=== PATIENT | female | born 1950 | race Caucasian/White ===

== ENCOUNTER 2019-05-11 05:25 | Observation (INO) | payer MEDICARE, BC ==
[2019-05-11] MEDS ORDERED: SODIUM CHLORIDE 0.9% 1,000 ML IV STA (05:34)
--- NOTE | 2019-05-11 05:34 | ED ---
General Adult HPI - General Stated complaint: DM Time Seen by Provider: 05/11/19 05:32 - History of Present Illness Initial comments: Samira is a morbidly obese 68-year-old female with history of insulin-dependent diabetes who presents to the emergency department today for evaluation of unresponsive episode in which she was found have a glucose of only 50. EMS was contacted this morning because the patient's was unable to wake her, he used her glucometer which read 160 and became concerned that she was unresponsive despite having a normal blood sugar, EMS arrived on scene, the patient had snoring respirations and was difficult to arouse, her eerag-wi-qwsq glucose was 50. IV access was obtained and patient was given half an amp of D 50 with improvement in her mental status she was then given oral glucose during transport to the hospital. Patient has an insulin pump in place and believes a muscle malfunction. Patient reports she was feeling fine yesterday but didn't have much of an appetite and did not eat much. She believes this may have contributed to her hypoglycemia. Of note the patient is also bradycardic and states she's been told that she has a slow heartbeat in the past, she states she has a history of A. fib. - Related Data Allergies Allergy/AdvReac Type Severity Reaction Status Date / Time codeine AdvReac Confusion Verified 05/11/19 05:39 Review of Systems ROS Statement: Those systems with pertinent positive or pertinent negative responses have been documented in the HPI. ROS Other: All systems not noted in ROS Statement are negative. General Exam - General Exam Comments Initial Comments: Physical Exam GENERAL: Morbidly obese 68-year-old female HENT: Normocephalic, Atraumatic. EYES: PERRL, EOMI PULMONARY: Unlabored respirations Likely suffers from obesity hypoventilation syndrome CARDIOVASCULAR: Bradycardic, regular 2+ pitting edema bilateral lower extremity is ABDOMEN: Soft and nontender with normal bowel sounds. SKIN: Skin is dry with chronic changes bilateral lower extremities : Normal external genitalia NEUROLOGIC: Patient is alert and oriented x3. Moving all extremities spontaneously MUSCULOSKELETAL: Normal extremities with adequate strength and full range of motion. No lower extremity swelling or edema. No calf tenderness. PSYCHIATRIC: Normal psychiatric evaluation. Course Vital Signs 05/11/19 05/11/19 05:28 06:47 Temperature 98.3 F Pulse Rate 43 L 48 L Respiratory 18 20 Rate Blood Pressure 172/81 125/67 O2 Sat by Pulse 95 95 Oximetry EKG Findings - EKG Comments: EKG Findings:: EKG was obtained due to bradycardia, EKG was obtained at 5:20 AM, rate is 44 rhythm is sinus bradycardia with a left bundle-branch block. Normal axis, normal intervals, OR 188, QRS 178, QTC prolonged at 435. She acute ST elevations or depressions or evidence of acute ischemia or infarction. Medical Decision Making - Medical Decision Making The patient was seen and evaluated upon arrival to the emergency department, patient was evaluated by EMS and found to be hypoglycemic, hyperglycemia was reversed in route to the hospital and upon arrival the patient is asymptomatic however she is noted to be bradycardic and chronically ill-appearing Labs were ordered and CBC CMP and urinalysis are relatively unremarkable TSH is elevated, free T4 is pending The patient has been awake alert and oriented, she was noted to fall sleep and have some loud snoring respirations but wakes to voice, when asked if she is ever had an evaluation for obstructive sleep apnea patient denies, she does not use a CPAP machine Patient remained bradycardic throughout her stay in the emergency department though she is asymptomatic. Given her advanced age multiple mode medical comorbidities, I do feel she warrants further evaluation. Patient is agreeable to plan for admission here for further evaluation Patients PCP with no preferences here, patient [facility] - Lab Data Result diagrams: 05/11/19 03:48 05/11/19 03:48 Lab Results 05/11/19 05/11/19 05/11/19 Range/Units 03:48 03:48 05:29 WBC 9.7 (3.8-10.6) k/uL RBC 4.86 (3.80-5.40) m/uL Hgb 14.0 (11.4-16.0) gm/dL Hct 42.2 (34.0-46.0) % MCV 86.7 (80.0-100.0) fL MCH 28.8 (25.0-35.0) pg MCHC 33.2 (31.0-37.0) g/dL RDW 15.5 (11.5-15.5) % Plt Count 272 (150-450) k/uL Neutrophils % 80 % Lymphocytes % 11 % Monocytes % 5 % Eosinophils % 2 % Basophils % 1 % Neutrophils # 7.7 (1.3-7.7) k/uL Lymphocytes # 1.1 (1.0-4.8) k/uL Monocytes # 0.5 (0-1.0) k/uL Eosinophils # 0.2 (0-0.7) k/uL Basophils # 0.1 (0-0.2) k/uL Sodium 140 (137-145) mmol/L Potassium 4.8 (3.5-5.1) mmol/L Chloride 102 (98-107) mmol/L Carbon Dioxide 30 (22-30) mmol/L Anion Gap 8 mmol/L BUN 18 H (7-17) mg/dL Creatinine 0.83 (0.52-1.04) mg/dL Est GFR (CKD-EPI)AfAm 83 (>60 ml/min/1.73 sqM) Est GFR (CKD-EPI)NonAf 72 (>60 ml/min/1.73 sqM) Glucose 220 H (74-99) mg/dL POC Glucose (mg/dL) 197 H (75-99) mg/dL POC Glu Operations Business Partner ID Erin Méndez Calcium 9.1 (8.4-10.2) mg/dL Total Bilirubin 0.6 (0.2-1.3) mg/dL AST 25 (14-36) U/L ALT 24 (9-52) U/L Alkaline Phosphatase 93 (38-126) U/L Total Protein 7.6 (6.3-8.2) g/dL Albumin 4.0 (3.5-5.0) g/dL TSH 5.030 H (0.465-4.680) mIU/L Urine Color Urine Appearance (Clear) Urine pH (5.0-8.0) Ur Specific [place] (1.001-1.035) Urine Protein (Negative) Urine Glucose (UA) (Negative) Urine Ketones (Negative) Urine Blood (Negative) Urine Nitrite (Negative) Urine Bilirubin (Negative) Urine Urobilinogen (<2.0) mg/dL Ur Leukocyte Esterase (Negative) Urine RBC (0-5) /hpf Urine WBC (0-5) /hpf Urine Bacteria (None) /hpf 05/11/19 05/11/19 Range/Units 06:17 06:44 WBC (3.8-10.6) k/uL RBC (3.80-5.40) m/uL Hgb (11.4-16.0) gm/dL Hct (34.0-46.0) % MCV (80.0-100.0) fL MCH (25.0-35.0) pg MCHC (31.0-37.0) g/dL RDW (11.5-15.5) % Plt Count (150-450) k/uL Neutrophils % % Lymphocytes % % Monocytes % % Eosinophils % % Basophils % % Neutrophils # (1.3-7.7) k/uL Lymphocytes # (1.0-4.8) k/uL Monocytes # (0-1.0) k/uL Eosinophils # (0-0.7) k/uL Basophils # (0-0.2) k/uL Sodium (137-145) mmol/L Potassium (3.5-5.1) mmol/L Chloride (98-107) mmol/L Carbon Dioxide (22-30) mmol/L Anion Gap mmol/L BUN (7-17) mg/dL Creatinine (0.52-1.04) mg/dL Est GFR (CKD-EPI)AfAm (>60 ml/min/1.73 sqM) Est GFR (CKD-EPI)NonAf (>60 ml/min/1.73 sqM) Glucose (74-99) mg/dL POC Glucose (mg/dL) 180 H (75-99) mg/dL POC Glu Operations Business Partner ID Ramona Falk Calcium (8.4-10.2) mg/dL Total Bilirubin (0.2-1.3) mg/dL AST (14-36) U/L ALT (9-52) U/L Alkaline Phosphatase (38-126) U/L Total Protein (6.3-8.2) g/dL Albumin (3.5-5.0) g/dL TSH (0.465-4.680) mIU/L Urine Color Yellow Urine Appearance Cloudy H (Clear) Urine pH 5.5 (5.0-8.0) Ur Specific [place] 1.017 (1.001-1.035) Urine Protein Trace H (Negative) Urine Glucose (UA) 4+ H (Negative) Urine Ketones Negative (Negative) Urine Blood Negative (Negative) Urine Nitrite Negative (Negative) Urine Bilirubin Negative (Negative) Urine Urobilinogen <2.0 (<2.0) mg/dL Ur Leukocyte Esterase Negative (Negative) Urine RBC <1 (0-5) /hpf Urine WBC <1 (0-5) /hpf Urine Bacteria Few H (None) /hpf Disposition Clinical Impression: Bradycardia, Hypothyroid, Morbid obesity, Hypoglycemia, IDDM (insulin dependent diabetes mellitus) Disposition: ADMITTED IP TO THIS HOSP Condition: Stable Is patient prescribed a controlled substance at d/c from ED?: No Referrals: Nonstaff,Physician [REFERRING] - 1-2 days
[2019-05-11 05:40] LABS: Glucose,Whole Blood 197 mg/dL (75-99)
[2019-05-11 05:57] LABS: Basophils # (A) 0.1 k/uL (0-0.2); Basophils % (A) 1 %; Eosinophils # (A) 0.2 k/uL (0-0.7); Eosinophils % (A) 2 %; HCT 42.2 % (34.0-46.0); Lymphocytes # (A) 1.1 k/uL (1.0-4.8); Lymphocytes % (A) 11 %; MCH 28.8 pg (25.0-35.0); MCHC 33.2 g/dL (31.0-37.0); MCV 86.7 fL (80.0-100.0); Mean Platelet Volume 7.4; Monocytes # (A) 0.5 k/uL (0-1.0); Monocytes % (A) 5 %; Neutrophils # (A) 7.7 k/uL (1.3-7.7); Neutrophils % (A) 80 %; Platelet Count 272 k/uL (150-450); RBC 4.86 m/uL (3.80-5.40); RDW 15.5 % (11.5-15.5); WBC 9.7 k/uL (3.8-10.6)
[2019-05-11 06:14] LABS: Calcium 9.1 mg/dL (8.4-10.2); Potassium 4.8 mmol/L (3.5-5.1); Total Bilirubin 0.6 mg/dL (0.2-1.3); Total Protein 7.6 g/dL (6.3-8.2)
[2019-05-11 06:25] LABS: Appearance,Urine Cloudy (Clear); Bacteria,Urine Few /hpf; Bilirubin,Urine Negative (Negative); Blood,Urine Negative (Negative); Color,Urine Yellow; Glucose,Urine (UA) 4+ (Negative); Ketones,Urine Negative (Negative); Leukocyte Esterase,Urine Negative (Negative); Nitrite,Urine Negative (Negative); PH, Urine 5.5 (5.0-8.0); Protein,Urine Trace (Negative); RBC,Urine <1 /hpf (0-5); Specific Gravity,Urine 1.017 (1.001-1.035); Urobilinogen,Urine <2.0 mg/dL (<2.0)
[2019-05-11 06:46] LABS: Glucose,Whole Blood 180 mg/dL (75-99)
[2019-05-11] MEDS ORDERED: NALOXONE 0.4 MG/ML 1 ML VIAL IV PRN (07:26)
[2019-05-11 07:53] VITALS: RESP 18
--- NOTE | 2019-05-11 08:13 | CT ---
EXAMINATION TYPE: CT brain wo con DATE OF EXAM: 05/11/2019 COMPARISON: NONE HISTORY: altered mental status CT DLP: 1099.4 mGycm Automated exposure control for dose reduction was used. FINDINGS: Central structures are midline. There is no evidence of hydrocephalus. No acute focal lesion, mass ef fect or midline shift is seen. I do not see evidence of intracranial blood. Visualized portions of the paranasal sinuses and mastoids are clear. The bony calvarium is intact. IMPRESSION: NO ACUTE INTRACRANIAL ABNORMALITY.
--- NOTE | 2019-05-11 09:51 | P.HPIM ---
History of Present Illness H&P Date: 05/11/19 Chief Complaint: Confusion altered mental status The patient is a morbidly obese 68-year-old female with history of Jtclrsm-Imvwn-Sfyzd, essential hypertension, insulin-dependent diabetes with peripheral neuropathy, paroxysmal A. fib on DOAC Xarelto who presents to the emergency department today for evaluation of unresponsive episode in which she was found have a glucose of only 50. EMS was contacted this morning because the patient's was unable to wake her, he used her glucometer which read 160 and became concerned that she was unresponsive despite having a normal blood sugar, EMS arrived on scene, the patient had snoring respirations and was diff icult to arouse, her uzvxl-la-bckw glucose was 50. IV access was obtained and patient was given half an amp of D 50 with improvement in her mental status she was then given oral glucose during transport to the hospital. Patient has an insulin pump in place and believes in a likely glucometer malfunction. Patient reports she was feeling fine yesterday but didn't have much of an appetite and did not eat much. She believes this may have contributed to her hypoglycemia. The patient is largely wheelchair bound she is able to ambulate very short distance with full assist. Reports significant snoring at night In the ER she had a comprehensive workup she was noted to be bradycardic with a rate of 44 EKG suggesting left bundle branch block, had a CBC was normal BMP was normal, TSH was elevated at 5.03 free T4 within normal range at 1. The patient is recommended for admission for bradycardia Review of Systems Pertinent positives per HPI all other review of systems are otherwise negative Past Medical History Past Medical History: Atrial Fibrillation, Diabetes Mellitus, Hyperlipidemia Additional Past Medical History / Comment(s): neuropathy History of Any Multi-Drug Resistant Organisms: None Reported Past Surgical History: Orthopedic Surgery Past Psychological History: No Psychological Hx Reported Smoking Status: Never smoker Past Alcohol Use History: None Reported Past Drug Use History: None Reported Medications and Allergies Home Medications Medication Instructions Recorded Confirmed Type DULoxetine HCL [Cymbalta] 30 mg PO DAILY 05/11/19 05/11/19 History Furosemide [Lasix] 20 mg PO DAILY 05/11/19 05/11/19 History Insuln Asp Prt/Insulin Aspart 0.01 unit SQ-PUMP CONTINUOUS 05/11/19 05/11/19 History [NovoLOG MIX 70-30 VIAL] Losartan Potassium 100 mg PO DAILY 05/11/19 05/11/19 History Potassium Chloride ER [K-Dur 10] 10 meq PO DAILY 05/11/19 05/11/19 History Pravastatin Sodium [Pravachol] 10 mg PO DAILY 05/11/19 05/11/19 History Rivaroxaban [Xarelto] 20 mg PO W/SUPPER 05/11/19 05/11/19 History Sotalol HCl [Sotalol AF] 80 mg PO Q12H 05/11/19 05/11/19 History Allergies Allergy/AdvReac Type Severity Reaction Status Date / Time codeine AdvReac Confusion Verified 05/11/19 07:44 Physical Exam Vitals: Vital Signs Temp Pulse Resp BP Pulse Ox 05/11/19 06:47 48 L 20 125/67 95 05/11/19 05:28 98.3 F 43 L 18 172/81 95 Intake and Output 05/10/19 05/11/19 05/11/19 22:59 06:59 14:59 Other: Weight 112.491 kg Constitutional: No acute distress, conversant, pleasant Eyes: Anicteric sclerae, moist conjunctiva, no lid-lag, PERRLA ENMT: NC/AT,Oropharynx clear, no erythema, exudates Neck:Supple, FROM, no masses, or JVD, No carotid bruits; No thyromegaly Lungs: Clear to auscultation, Clear to percussion, Normal respiratory effort, no accessory muscle use Cardiovascular: Bradycardic regular rhythm, No murmurs, gallops, or rubs no peripheral edema Abdominal: Soft Nontender, nom distended, no guarding, no rebound or rigidity, Normoactive bowel sounds No hepatomegaly, No splenomegaly, No palpable mass No abdominal wall hernia noted Skin: Normal temperature, tone, texture, turgor, No induration No subcutaneous nodules, No rash, lesions, No ulcers Extremities:No digital cyanosis No clubbing, Pedal pulses intact and symmetrical Radial pulses intact and symmetrical Psychiatric: Alert and oriented to person, place and time, Appropriate affect Intact judgement Neuro: Cranial nerves II-XII grossly intact. No focal sensory deficits Results CBC & Chem 7: 05/11/19 03:48 05/11/19 03:48 Labs: Abnormal Lab Results - Last 24 Hours (Table) 05/11/19 05/11/19 05/11/19 Range/Units 03:48 05:29 06:17 BUN 18 H (7-17) mg/dL Glucose 220 H (74-99) mg/dL POC Glucose (mg/dL) 197 H (75-99) mg/dL TSH 5.030 H (0.465-4.680) mIU/L Urine Appearance Cloudy H (Clear) Urine Protein Trace H (Negative) Urine Glucose (UA) 4+ H (Negative) Urine Bacteria Few H (None) /hpf 05/11/19 Range/Units 06:44 BUN (7-17) mg/dL Glucose (74-99) mg/dL POC Glucose (mg/dL) 180 H (75-99) mg/dL TSH (0.465-4.680) mIU/L Urine Appearance (Clear) Urine Protein (Negative) Urine Glucose (UA) (Negative) Urine Bacteria (None) /hpf Assessment and Plan (1) Metabolic encephalopathy Current Visit: Yes Status: Acute Code(s): G93.41 - METABOLIC ENCEPHALOPATHY SNOMED Code(s): 17317515 (2) Hypoglycemia Current Visit: Yes Status: Acute Code(s): E16.2 - HYPOGLYCEMIA, UNSPECIFIED SNOMED Code(s): 705987615 (3) Bradycardia Current Visit: Yes Status: Acute Code(s): R00.1 - BRADYCARDIA, UNSPECIFIED SNOMED Code(s): 58565079 (4) History of atrial fibrillation Current Visit: Yes Status: Acute Code(s): Z86.79 - PERSONAL HISTORY OF OTHER DISEASES OF THE CIRCULATORY SYSTEM SNOMED Code(s): 806154531 (5) IDDM (insulin dependent diabetes mellitus) Current Visit: Yes Status: Acute Code(s): E11.9 - TYPE 2 DIABETES MELLITUS WITHOUT COMPLICATIONS; Z79.4 - MCFP (CURRENT) USE OF INSULIN SNOMED Code(s): 39672020 (6) Bkgforu-Afxpa-Mfkps disease Current Visit: Yes Status: Acute Code(s): G60.0 - HEREDITARY MOTOR AND SENSORY NEUROPATHY SNOMED Code(s): 686499931 Plan: The patient is placed in observation anticipate a less than 2 midnight stay with acute metabolic encephalopathy and bradycardia after presenting here via EMS with confusion unresponsiveness altered mental status found to be secondary to hypoglycemia with initial blood sugar reading at 50 secondary to poor oral intake while currently on insulin pump. The patient was given an amp of D50 and blood sugars have been stable since, CT of the head will be ordered to rule out any acute intracranial pathology. patient is noted to have severe bradycardia with possible left bundle-branch block, will order echocardiogram and serial troponins and consult cardiology for further recommendations. Alexa christensen was previously on beta william will hold her Sotalol, patient has a known history of paroxysmal A. fib and is currently on Xarelto will be continued. We'll continue all of her other home medications and continue to follow her clinical course CODE STATUS: DNR/DNI Discussed plan of care with: Patient and Jaguar Anticipate discharge 1-[address]: Home Prophylaxis: Currently on DOAC
[2019-05-11] MEDS ORDERED: ACETAMINOPHEN TAB 325 MG TAB PO PRN (10:16)
[2019-05-11 11:38] LABS: Glucose,Whole Blood 190 mg/dL (75-99)
--- NOTE | 2019-05-11 14:17 | CONS ---
CONSULTATION CHIEF COMPLAINT: Bradycardia. Samira Jaime is a 68-year-old lady with history of diabetes, paroxysmal atrial fibrillation, dyslipidemia, who sees a service shop foreman in [place] and came to hospital having had what the describes as a hypoglycemic event. The patient has peripheral neuropathy and uses a motorized wheelchair to get around and when he woke up this morning, he found her between her wheelchair and the motorized wheelchair is somewhat confused. He checked a blood sugar that was normal, but then the EMS arrived and they checked the blood sugar, it was 50. Brought into hospital and gradually her symptoms have gotten better. The EKG shows sinus bradycardia with left bundle branch block. I do not have any old EKGs to compare with. She had a CT scan of the brain that is negative. Hemoglobin is normal at 14. Potassium is 4.8, creatinine is 0.8. TSH is elevated at 5 with a free T4 that is within normal limits. I am going to obtain an old EKG on her. The patient's states that she has always had a slow heart rate. I will obtain a 2D echo to evaluate her LV function and I will watch her on telemetry. PAST MEDICAL HISTORY: Significant for paroxysmal atrial fibrillation, dyslipidemia and hypertension. MEDICATIONS: Medications at home included sotalol 80 b.i.d., Xarelto 20 daily, pravastatin 10 daily, K-Dur 10 daily, losartan 100 daily, insulin Lasix and Cymbalta. ALLERGIES: The patient is allergic to CODEINE. FAMILY HISTORY: Negative for premature coronary artery disease. SOCIAL HISTORY: Negative for current smoking, EtOH abuse, or drug abuse. REVIEW OF SYSTEMS: HEENT is unremarkable. CARDIAC as described above. RESPIRATORY: Negative. GI: Negative. GENITOURINARY: Negative. ALLERGY/IMMUNOLOGY: Negative. SKIN: Negative. MUSCULOSKELETAL: Arthritis. PSYCHOSOCIAL: Negative. ENDOCRINE: Negative. DERMATOLOGICAL: Negative. ONCOLOGICAL: Negative. Rest of the system review is not relevant. EXAM: The patient is comfortable at rest. Afebrile. Heart rate is 48 beats per minute. Blood pressure varies between 198/94 to 125/69. There is no jugular venous distention. Carotid upstroke is normal. There is no bruit. Chest exam reveals good air entry bilaterally. Heart exam reveals first and second heart sounds. No gallop. No murmur. Abdomen is soft, nontender. Exam of extremities did not reveal any edema. Peripheral pulses are felt. LAB: Showed that the hemoglobin is 14, creatinine is normal. TSH is elevated but the free T4 is normal. I will obtain a free T3 also. ASSESSMENT: 1. Asymptomatic sinus bradycardia. 2. Insulin-requiring diabetes. 3. Paroxysmal atrial fibrillation. 4. Hypertension. PLAN: I will obtain an old EKG, check an echocardiogram, check free T3 and add amlodipine for better blood pressure control. MMODL / IJN: [id number] /
[2019-05-11] MEDS: LOSARTAN 50 MG TAB PO SCH (16:30)
[2019-05-11] MEDS: FUROSEMIDE 20 MG TAB PO SCH (16:30)
[2019-05-11] MEDS: POTASSIUM CHLORIDE ER 10 MEQ TAB.ER.PRT PO SCH (16:31)
[2019-05-11] MEDS: DULoxetine HCL 30 MG CAPSULE.DR PO SCH (16:31)
[2019-05-11 16:37] LABS: Glucose,Whole Blood 297 mg/dL (75-99)
[2019-05-11] MEDS: INSULIN ASPART (NovoLOG) 100 UNIT/ML VIAL SQ SCH ×2 (17:26→20:23)
[2019-05-11] MEDS ORDERED: RIVAROXABAN 20 MG TAB PO SCH (17:30)
[2019-05-11 20:16] LABS: Glucose,Whole Blood 279 mg/dL (75-99)
[2019-05-11] MEDS: PRAVASTATIN SODIUM 20 MG TAB PO SCH (20:53)
[2019-05-12 00:06] LABS: Cholesterol 183 mg/dL (<200); HDL Cholesterol 47 mg/dL (40-60); LDL Cholesterol,Calculated 110 mg/dL (0-99); Triglycerides 132 mg/dL (<150)
[2019-05-12 07:02] LABS: Glucose,Whole Blood 242 mg/dL (75-99)
[2019-05-12] MEDS: LOSARTAN 50 MG TAB PO SCH (08:25)
[2019-05-12] MEDS: POTASSIUM CHLORIDE ER 10 MEQ TAB.ER.PRT PO SCH (08:25)
[2019-05-12] MEDS: INSULIN ASPART (NovoLOG) 100 UNIT/ML VIAL SQ SCH ×2 (08:25→12:19)
[2019-05-12] MEDS: PRAVASTATIN SODIUM 20 MG TAB PO SCH (08:26)
[2019-05-12] MEDS: FUROSEMIDE 20 MG TAB PO SCH (08:26)
[2019-05-12] MEDS: DULoxetine HCL 30 MG CAPSULE.DR PO SCH (08:26)
[2019-05-12] MEDS ORDERED: POTASSIUM CHLORIDE ER 10 MEQ TAB.ER.PRT PO SCH (09:00)
[2019-05-12] MEDS ORDERED: PRAVASTATIN SODIUM 20 MG TAB PO SCH (09:00)
[2019-05-12] MEDS ORDERED: FUROSEMIDE 20 MG TAB PO SCH (09:00)
[2019-05-12] MEDS ORDERED: LOSARTAN 50 MG TAB PO SCH (09:00)
[2019-05-12] MEDS ORDERED: DULoxetine HCL 30 MG CAPSULE.DR PO SCH (09:00)
[2019-05-12 11:57] LABS: Glucose,Whole Blood 264 mg/dL (75-99)
--- NOTE | 2019-05-12 12:46 | ECHOF ---
Referral Reason:bradycardia MEASUREMENTS -------- HEIGHT: 154.9 cm WEIGHT: 112.5 kg BP: 169/62 IVSd: 1.5 cm (0.6 - 1.1) LVIDd: 4.9 cm (3.9 - 5.3) LVPWd: 1.4 cm (0.6 - 1.1) IVSs: 1.9 cm LVIDs: 2.7 cm LVPWs: 1.7 cm LAESV Index (A-L): 29.57 ml/m Ao Diam: 2.9 cm (2.0 - 3.7) AV Cusp: 1.6 cm (1.5 - 2.6) MV E Nabil: 1.05 m/s MV DecT: 315 ms MV A Nabil: 1.43 m/s MV E/A Ratio: 0.73 RAP: 5.00 mmHg RVSP: 37.23 mmHg FINDINGS -------- Sinus rhythm. This was a technically adequate study. The left ventricular size is normal. There is moderate concentric left ventricular hypertrophy. O verall left ventricular systolic function is normal with, an EF between 55 - 60 %. Mitral Doppler i nflow pattern suggests diastolic filling abnormality. The RV was not well visualized. Left atrium is mildly dilated by volume. The right atrium was not well visualized. Lumason used Interatrial and interventricular septum intact. The aortic valve is trileaflet, and appears structurally normal. No aortic stenosis or regurgitation. Mild mitral annular calcification present. Mild mitral regurgitation is present. Mild mitral sten osis , with a MVA of 2.5cm (by PHT) Mild tricuspid regurgitation present. There is mild pulmonary hypertension. The right ventricular systolic pressure, as measured by Doppler, is 37.23mmHg. Trace/mild (physiologic) pulmonic regurgitation. The aortic root size is normal. IVC not well visualized Echo free space may represent effusion or a pericardial fat pad. CONCLUSIONS -------- 1. Sinus rhythm. 2. This was a technically adequate study. 3. The left ventricular size is normal. 4. There is moderate concentric left ventricular hypertrophy. 5. Overall left ventricular systolic function is normal with, an EF between 55 - 60 %. 6. Mitral Doppler inflow pattern suggests diastolic filling abnormality. 7. The RV was not well visualized. 8. Left atrium is mildly dilated by volume. 9. Lumason used 10. The aortic valve is trileaflet, and appears structurally normal. No aortic stenosis or regurgitat ion. 11. Mild mitral annular calcification present. 12. Mild mitral regurgitation is present. 13. Mild mitral stenosis. 14. , with a MVA of 2.5cm (by PHT) 15. Mild tricuspid regurgitation present. 16. There is mild pulmonary hypertension. 17. Trace/mild (physiologic) pulmonic regurgitation. 18. The aortic root size is normal. 19. IVC not well visualized 20. Echo free space may represent effusion or a pericardial fat pad. BELL CLERK: Yakelin Sharma RDCS
--- NOTE | 2019-05-12 13:27 | P.PN ---
Subjective This is a pleasant 68-year-old female past medical history significant for paroxysmal atrial fibrillation on prison anti-coagulation, hypertension, diabetes mellitus and dyslipidemia. She follows with Dr. Haley for cardiology. There was an episode of bradycardia and her beta blockers were stopped. She is seen and examined sitting up in bed in no acute distress. She states overall she just feels tired. She has had no further syncope, dizziness or hypoglycemia. EKG requested from her primary eligibility consultant for review. Reveals left bundle branch block. Blood pressure 97/48 heart rate 68 afebrile and maintaining oxygen saturation on room air. Currently maintained on atorvastatin 40 mg daily, lasix 20 mg daily, losartan 100 mg daily, potassium 10 meq daily and xarelto 20 mg daily. Echocardiogram obtained reveals preserved LV systolic function with ejection fraction 55-60%, mild mitral regurgitation and mild mitral stenosis with a mitral valve area 2.5 cm. GENERAL: Well-appearing, well-nourished and in no acute distress. NECK: Supple without JVD or thyromegaly. LUNGS: Breath sounds clear to auscultation bilaterally. Respiration equal and unlabored. No wheezes, rales or rhonchi. HEART: Regular rate and rhythm with murmur at the left sternal border, no rubs or gallops. S1 and S2 heard. EXTREMITIES: Normal range of motion, no edema. No clubbing or cyanosis. Peripheral pulses intact. ASSESSMENT Asymptomatic sinus bradycardia Paroxysmal atrial fibrillation on prison anti-coagulation Diabetes mellitus Hypertension Dyslipidemia Left bundle branch block PLAN Stable from a cardiac perspective. Discontinue sotolol upon discharge. Resuming as needed can be discussed with her primary eligibility consultant in the outpatient setting. EKG reviewed from her primary eligibility consultant indicating chronic left bundle branch block. Follow-up with her primary eligibility consultant upon discharge. Nurse Practitioner note has been reviewed, I agree with a documented findings and plan of care. Patient was seen and examined. Objective - Vital Signs Vital signs: Vital Signs Temp 98.3 F 05/12/19 07:59 Pulse 68 05/12/19 07:59 Resp 18 05/12/19 07:59 BP 97/78 05/12/19 07:59 Pulse Ox 97 05/12/19 07:59 Intake & Output 05/11/19 05/12/19 05/12/19 18:59 06:59 18:59 Intake Total 480 Balance 480 Intake: Oral 480 Other: # Voids 2 2 - Labs CBC & Chem 7: 05/11/19 03:48 05/11/19 03:48 Labs: Abnormal Lab Results - Last 24 Hours (Table) 05/11/19 05/11/19 05/11/19 Range/Units 03:48 11:36 16:36 POC Glucose (mg/dL) 190 H 297 H (75-99) mg/dL LDL Cholesterol, Calc 110 H (0-99) mg/dL 05/11/19 05/12/19 Range/Units 20:08 07:00 POC Glucose (mg/dL) 279 H 242 H (75-99) mg/dL LDL Cholesterol, Calc (0-99) mg/dL
[2019-05-12] MEDS ORDERED: amLODIPine 5 MG TAB PO SCH (13:30)
--- NOTE | 2019-05-12 15:26 | P.DS ---
Providers Date of admission: 05/11/19 07:27 Expected date of discharge: 05/12/19 Attending physician: Ming Li MD Consults: 05/11/19 07:27 Consult Physician Routine Consulting Provider: [facility] Consult Reason/Comments: bradycardia Do you want consulting provider notified?: Yes, Notify in am Primary care physician: Sadie [facility] Course: The patient is a morbidly obese 68-year-old female with history of Xaahczb-Zmqpq-Gpmty, essential hypertension, insulin-dependent diabetes with peripheral neuropathy, paroxysmal A. fib on DOAC Xarelto who presents to the emergency department today for evaluation of unresponsive episode in which she was found have a glucose of only 50. Patient has an insulin pump in place and believes in a likely glucometer malfunction. Patient reports she was feeling fine yesterday but didn't have much of an appetite and did not eat much. She believes this may have contributed to her hypoglycemia. In the ER she had a comprehensive workup she was noted to be bradycardic with a rate of 44 EKG suggesting left bundle branch block, had a CBC was normal BMP was normal, TSH was elevated at 5.03 free T4 within normal range at 1. The patient is recommended for admission for bradycardia. Patient was given an amp of D50 and her blood glucose has been stable since. CT of the head showed no acute intracranial pathology. Patient's blood sugars ranged from 190-297 during her hospitalization. With regard to her bradycardia, plan was to rule out acute coronary syndrome. Patient was noted to be on sotalol which was discontinued. Troponin was less than 0.012, ruling out ACS. Echocardiogram showed EF 55-60% with moderate concentric LVH. Cardiology was consulted and recommended discontinuing the sotalol and cleared the patient for discharge with close follow-up with her primary char conveyor tender. Patient was seen and examined. No acute events overnight. Patient reports no more confusion. No chest pain, shortness of breath or palpitations. No dizziness. No changes in urination or bowel habits. Looking forward to going home. General: [non toxic], [no distress], [appears at stated age] Derm: [warm], [dry] Head: [atraumatic], [normocephalic], [symmetric] Eyes: [EOMI], [no lid lag], [anicteric sclera] Cardiovascular: [S1S2 reg], [no murmur] Lungs: [CTA bilateral], [no rhonchi, no rales] , [no accessory muscle use] Abdominal: [soft], [ nontender to palpation], [no guarding], [no appreciable organomegaly] Ext: [no gross muscle atrophy], [1+ lower extremity bilateral pitting edema], [no contractures] Neuro: [no focal neuro deficits] Psych: [Alert], [oriented], [appropriate affect] Assessment and Plan Acute metabolic encephalopathy, now resolved due to hypoglycemia Bradycardia likely due to beta william, now discontinued Atrial fibrillation Insulin-dependent diabetes mellitus Patient's mentation has improved since her blood glucose has gone up. She has not had any hypoglycemic episodes since admission. Recommendations from cardiology is to discontinue sotalol and resume all other medications. She is to follow-up with her primary char conveyor tender. Patient believes that her hypoglycemia was due to the malfunctioning over glucometer. Her glucometer showed a blood glucose in the 120s were as EMS glucometer showed a blood glucose around 50. She has since replace her glucometer. We will discharge patient home to continue her home medications except for sotalol. She is to follow-up with her PCP within 3 days. She is to follow-up with her char conveyor tender within 1 week of discharge. Patient verbalized understanding of the plan. Pertinent Studies: Brain CT, echocardiogram Patient Condition at Discharge: Stable Plan - Discharge Summary Discharge Rx Participant: No New Discharge Prescriptions: New amLODIPine [Norvasc] 5 mg PO DAILY #30 tab Continue Rivaroxaban [Xarelto] 20 mg PO W/SUPPER Pravastatin Sodium [Pravachol] 10 mg PO DAILY Potassium Chloride ER [K-Dur 10] 10 meq PO DAILY Losartan Potassium 100 mg PO DAILY Insuln Asp Prt/Insulin Aspart [NovoLOG MIX 70-30 VIAL] 0.01 unit SQ-PUMP CONTINUOUS Furosemide [Lasix] 20 mg PO DAILY DULoxetine HCL [Cymbalta] 30 mg PO DAILY Discontinued Sotalol HCl [Sotalol AF] 80 mg PO Q12H Discharge Medication List DULoxetine HCL [Cymbalta] 30 mg PO DAILY 05/11/19 [History] Furosemide [Lasix] 20 mg PO DAILY 05/11/19 [History] Insuln Asp Prt/Insulin Aspart [NovoLOG MIX 70-30 VIAL] 0.01 unit SQ-PUMP CONTINUOUS 05/11/19 [History] Losartan Potassium 100 mg PO DAILY 05/11/19 [History] Potassium Chloride ER [K-Dur 10] 10 meq PO DAILY 05/11/19 [History] Pravastatin Sodium [Pravachol] 10 mg PO DAILY 05/11/19 [History] Rivaroxaban [Xarelto] 20 mg PO W/SUPPER 05/11/19 [History] amLODIPine [Norvasc] 5 mg PO DAILY #30 tab 05/12/19 [Rx] Follow up Appointment(s)/Referral(s): Nonstaff,Physician [REFERRING] - 1-2 days Jorge Brand MD [STAFF PHYSICIAN] - 1 Week Activity/Diet/Wound Care/Special Instructions: Diet: Diabetic Follow-up PCP within 1-2 days of discharge. Follow-up with cardiology within 1 week of discharge. Take all medications as advised. Discharge Disposition: HOME SELF-CARE
[2019-05-12 16:08] VITALS: BP 181/81; PULSE 70; TEMP 98.3
[2019-05-12] MEDS ORDERED: RIVAROXABAN 20 MG TAB PO SCH (17:30)
[2019-05-12] MEDS ORDERED: ATORVASTATIN 40 MG TAB PO SCH (21:00)
== END 2019-05-12 16:50 | disposition home or self-care (01) ==
LOC: EC 05:25 → 1SOBS 07:27
PROVIDERS: ADMIT Family Medicine; ATTEND Family Medicine
DX: E11.649 Type 2 diabetes mellitus with hypoglycemia without coma (principal); G93.41 Metabolic encephalopathy; R00.1 Bradycardia, unspecified; E03.9 Hypothyroidism, unspecified; I48.0 Paroxysmal atrial fibrillation; E11.42 Type 2 diabetes mellitus with diabetic polyneuropathy; E66.2 Morbid (severe) obesity with alveolar hypoventilation; Z68.42 Body mass index [BMI] 45.0-49.9, adult; I10 Essential (primary) hypertension; G60.0 Hereditary motor and sensory neuropathy; E78.5 Hyperlipidemia, unspecified; I05.2 Rheumatic mitral stenosis with insufficiency; I44.7 Left bundle-branch block, unspecified; Z66 Do not resuscitate; Z79.01 Long term (current) use of anticoagulants; Z79.899 Other long term (current) drug therapy; Z96.41 Presence of insulin pump (external) (internal); Z88.5 Allergy status to narcotic agent
CPT/HCPCS: 96360; 99285; 36415; 93005; 97162; 84439; 84481; 80061; 80053; 84443; 84484; 85025; 81001; 70450; G0378 ×2; C8929; Q9950; 93306

== ENCOUNTER 2021-11-12 05:23 | Observation (INO) | payer MEDICARE, BC ==
[2021-11-12 05:45] LABS: Basophils % (A) 1 %; Eosinophils # (A) 0.2 k/uL (0-0.7); Eosinophils % (A) 4 %; HCT 40.8 % (34.0-46.0); HGB 13.4 gm/dL (11.4-16.0); Lymphocytes % (A) 19 %; MCH 28.7 pg (25.0-35.0); MCHC 32.9 g/dL (31.0-37.0); MCV 87.2 fL (80.0-100.0); Mean Platelet Volume 9.5; Monocytes # (A) 0.4 k/uL (0-1.0); Monocytes % (A) 7 %; Neutrophils # (A) 3.6 k/uL (1.3-7.7); Neutrophils % (A) 68 %; Platelet Count 168 k/uL (150-450); RBC 4.68 m/uL (3.80-5.40); RDW 14.4 % (11.5-15.5); WBC 5.4 k/uL (3.8-10.6)
--- NOTE | 2021-11-12 05:47 | ED ---
Chest Pain HPI - General Chief Complaint: Chest Pain Stated Complaint: Chest Pain Time Seen by Provider: 11/12/21 05:25 Source: patient, RN notes reviewed, old records reviewed Mode of arrival: EMS - History of Present Illness Initial Comments: This is a 70-year-old female with history of A. fib hypertension high cholesterol. Patient presents today for evaluation of chest pain anterior chest pain no significant shortness of breath no travel show sick contacts no other recent complaints. MD Complaint: chest pain -: hour(s) Onset: during rest, during exertion Pain Location: substernal, left chest Pain Radiation: none Severity: mild Quality: tightness, heaviness Consistency: constant, intermittent Improves With: nothing Worsens With: nothing Context: recent illness Anginal Symptoms: diaphoresis, dyspnea Other Symptoms: cough, palpitations Treatments Prior to Arrival: none - Related Data Home Medications Medication Instructions Recorded Confirmed DULoxetine HCL [Cymbalta] 30 mg PO DAILY PRN 05/11/19 11/12/21 Rivaroxaban [Xarelto] 20 mg PO W/SUPPER 05/11/19 11/12/21 Albuterol Nebulized [Ventolin 2.5 mg INHALATION RT-Q4H PRN 11/12/21 11/12/21 Nebulized] Azithromycin [Zithromax Z-pack (6 See Taper PO DAILY 11/12/21 11/12/21 tabs)] Brimonidine Tartrate [Alphagan P 1 drops BOTH EYES BID 11/12/21 11/12/21 0.2% Ophth Soln] Insulin Aspart (For Pump) [NovoLOG 0.01 unit SQ-PUMP CONTINUOUS 11/12/21 11/12/21 (For Pump)] Latanoprost [Xalatan 0.005%] 1 drop BOTH EYES HS 11/12/21 11/12/21 hydroCHLOROthiazide [Hydrodiuril] 25 mg PO DAILY 11/12/21 11/12/21 Allergies Allergy/AdvReac Type Severity Reaction Status Date / Time codeine AdvReac Confusion Verified 11/12/21 11:51 Review of Systems ROS Statement: Those systems with pertinent positive or pertinent negative responses have been documented in the HPI. ROS Other: All systems not noted in ROS Statement are negative. EKG Findings - EKG Comments: EKG Findings:: EKG shows sinus rhythm 76 [place] 173 QRS 92 QTC 484 Past Medical History Past Medical History: Atrial Fibrillation, Diabetes Mellitus, Hyperlipidemia Additional Past Medical History / Comment(s): neuropathy History of Any Multi-Drug Resistant Organisms: None Reported Past Surgical History: Orthopedic Surgery Additional Past Surgical History / Comment(s): "surjit in her leg after fracture" Past Psychological History: No Psychological Hx Reported Past Alcohol Use History: None Reported Past Drug Use History: None Reported General Exam General appearance: alert, in no apparent distress Head exam: Present: atraumatic, normocephalic, normal inspection Eye exam: Present: normal appearance, PERRL, EOMI. Absent: scleral icterus, conjunctival injection, periorbital swelling ENT exam: Present: normal exam, mucous membranes moist Neck exam: Present: normal inspection. Absent: tenderness, meningismus, lymphadenopathy Respiratory exam: Present: normal lung sounds bilaterally. Absent: respiratory distress, wheezes, rales, rhonchi, stridor Cardiovascular Exam: Present: regular rate, normal rhythm, normal heart sounds. Absent: systolic murmur, diastolic murmur, rubs, gallop, clicks GI/Abdominal exam: Present: soft, normal bowel sounds. Absent: distended, tenderness, guarding, rebound, rigid Extremities exam: Present: normal inspection, full ROM, normal capillary refill. Absent: tenderness, pedal edema, joint swelling, calf tenderness Back exam: Present: normal inspection Neurological exam: Present: alert, oriented X3, CN II-XII intact Psychiatric exam: Present: normal affect, normal mood Skin exam: Present: warm, dry, intact, normal color. Absent: rash Course Vital Signs 11/12/21 11/12/21 11/12/21 05:25 05:35 05:40 Temperature 97.6 F Pulse Rate 75 71 65 Respiratory 16 14 20 Rate Blood Pressure 185/83 185/83 186/95 O2 Sat by Pulse 95 95 96 Oximetry 11/12/21 11/12/21 11/12/21 06:10 06:20 06:30 Temperature Pulse Rate 75 81 73 Respiratory 16 20 15 Rate Blood Pressure 208/91 211/99 202/79 O2 Sat by Pulse 96 Oximetry 11/12/21 11/12/21 11/12/21 06:40 07:30 08:00 Temperature Pulse Rate 66 63 59 L Respiratory 22 Rate Blood Pressure 155/67 107/60 170/82 O2 Sat by Pulse 100 Oximetry 11/12/21 11/12/21 11/12/21 08:30 09:00 09:29 Temperature Pulse Rate 59 L 58 L 60 Respiratory Rate Blood Pressure 162/61 134/63 O2 Sat by Pulse Oximetry 11/12/21 11/12/21 11/12/21 09:30 09:39 10:00 Temperature Pulse Rate 60 60 60 Respiratory Rate Blood Pressure 147/69 144/77 O2 Sat by Pulse Oximetry 11/12/21 11/12/21 11/12/21 12:13 12:23 13:48 Temperature Pulse Rate 66 68 67 Respiratory 18 Rate Blood Pressure 168/79 O2 Sat by Pulse Oximetry - Reevaluation(s) Reevaluation #1: 11/12/21 Medical records are reviewed Reevaluation #2: 11/12/21 Patient informed results and questions answered Reevaluation #3: 11/12/21 Patient has persistent chest pain here in the emergency department - Consultations Consultation #1: Spoke with sound physicians agreeable to admit this patient Chest Pain MDM - MDM 70 female to the emergency department for evaluation of chest pain. Chest x-r ays negative here in the emergency room. A she'll be admitted for chest pain observation negative troponin negative EKG Disposition Clinical Impression: Chest pain Disposition: ADMITTED IP TO THIS HOSP Condition: Fair Is patient prescribed a controlled substance at d/c from ED?: No
[2021-11-12 05:59] LABS: INR 1.2 (<1.2); Partial Thromboplastin Time 29.8 sec (22.0-30.0); Prothrombin Time 12.3 sec (9.0-12.0)
[2021-11-12] MEDS ORDERED: NITROGLYCERIN SL TABS 0.4 MG TAB SUBLINGUAL PRN (06:09)
[2021-11-12 06:23] LABS: ALT 18 U/L (4-34); African American GFR (CKD) >90 (>60 ml/min/1.73 sqM); Anion Gap 2 mmol/L; Blood Urea Nitrogen 19 mg/dL (7-17); Calcium 8.2 mg/dL (8.4-10.2); Carbon Dioxide 32 mmol/L (22-30); Chloride 103 mmol/L (98-107); Glucose 182 mg/dL (74-99); Lipase 167 U/L (23-300); Non-African American GFR(CKD) 89 (>60 ml/min/1.73 sqM); Sodium 137 mmol/L (137-145); Total Bilirubin 0.8 mg/dL (0.2-1.3)
[2021-11-12] MEDS ORDERED: ASPIRIN 81 MG PO STA (06:26)
[2021-11-12] MEDS ORDERED: MORPHINE SULFATE 4 MG/ML SYRINGE IV PRN (06:26)
--- NOTE | 2021-11-12 06:28 | XR ---
EXAMINATION TYPE: XR chest 2V DATE OF EXAM: 11/12/2021 COMPARISON: NONE HISTORY: Chest pain. TECHNIQUE: Frontal and lateral views of the chest are obtained. FINDINGS: Suboptimal due to large body habitus. Overlying bra strap and EKG leads are present. Areas of faint increased opacity bilaterally difficult to exclude. No pleural effusion or pneumothorax seen bilaterally. The cardiac silhouette size is enlarged. The osseous structures are intact. IMPRESSION: Suboptimal study. Cardiomegaly with possible bilateral areas of early edema and/or infil trate. Correlate clinically.
[2021-11-12] MEDS ORDERED: LABETALOL 5 MG/ML VIAL MDV IVP STA (06:30)
[2021-11-12 06:51] LABS: AST 42 U/L (14-36); Albumin 3.9 g/dL (3.5-5.0); Magnesium 1.8 mg/dL (1.6-2.3); Potassium 4.3 mmol/L (3.5-5.1); Total Protein 7.8 g/dL (6.3-8.2)
[2021-11-12 06:52] LABS: Alkaline Phosphatase 58 U/L (38-126)
[2021-11-12] MEDS: IPRATROPIUM-ALBUTEROL 3 ML NEB INHALATION SCH ×5 (09:28→23:24)
[2021-11-12] MEDS ORDERED: IPRATROPIUM-ALBUTEROL 3 ML NEB INHALATION SCH (12:00)
[2021-11-12] MEDS ORDERED: DULoxetine HCL 30 MG CAPSULE.DR PO PRN (12:06)
[2021-11-12] MEDS ORDERED: ALBUTEROL NEBULIZED 2.5 MG/3 ML INHALATION PRN (12:06)
[2021-11-12] MEDS: hydroCHLOROthiazide 25 MG TAB PO SCH (13:47)
--- NOTE | 2021-11-12 13:56 | P.HPIM ---
History of Present Illness H&P Date: 11/12/21 Chief Complaint: Chest pain 70-year-old woman with medical history of Olywour-Ewvas-Ysrht, hypertension, hyperlipidemia, diabetes, proximal atrial fibrillation presented with chest pressure and dyspnea. Patient says that she started having chest pressure last night at 11 PM, continue throughout the day. She also noticed increased dyspnea. The pressure was substernal in nature. She declines having had a history of heart attack or stroke. She has never had a heart workup before. She is not a smoker. She denies fevers, chills, nausea, vomiting, palpitations, syncope, presyncope, abdominal pain, cough, consultation, diarrhea, dysuria, dyschezia, numbness/weakness of extremities. In the emergency room, patient was afebrile, 144/77, heart rate 60, 96% on 3 L nasal cannula. CBC is unremarkable. Chemistries are unremarkable. LFTs have mild elevation of AST to 42 mother was unremarkable. Initial troponin was negative, second troponin was negative; BNP was 91. INR is mildly elevated at 1.2. EKG demonstrates sinus rhythm with left bundle-branch block which is not new. Chest x-ray demonstrate cardiomegaly with possible bilateral areas of early edema and/or infiltrate. All Systems reviewed and pertinent positives and negatives noted in HPI, all other symptoms are negative Gen: awake, alert HEENT: normocephalic, atraumatic, good hearing acuity, moist mucous membranes Resp: good air exchange, breathing comfortably with no accessory muscle use, bilateral crackles CVS: good distal perfusion x 4, regular rate and rhythm without murmurs GI: soft, NTTP, ND : no SPT, no CVAT, chaparro catheter not present MSK: trace pitting edema, no clubbing Neuro: non-focal, moving all extremities Psych: cooperative, euthymic mood Labs and imaging reviewed as above Assessment/plan: Chest pain, atypical Acute hypoxemic respiratory failure Volume overload -Admit to observation with telemetry -Cardiology consulted -Trend troponins -Aspirin, statin, beta william -EKG/nitro when necessary -TSH, A1c, lipid panel -40 mg IV Lasix today -Echocardiogram pending History of Bwdmkwd-Ftnxc-Uxksr Hypertension Hyperlipidemia Diabetes type 2 Paroxysmal atrial fibrillation -Home Medications reviewed and reconciled Patient is a DO NOT RESUSCITATE/DO NOT INTUBATE DVT prophylaxis with enoxaparin Past Medical History Past Medical History: Atrial Fibrillation, Diabetes Mellitus, Hyperlipidemia Additional Past Medical History / Comment(s): neuropathy History of Any Multi-Drug Resistant Organisms: None Reported Past Surgical History: Orthopedic Surgery Additional Past Surgical History / Comment(s): "surjit in her leg after fracture" Past Psychological History: No Psychological Hx Reported Past Alcohol Use History: None Reported Past Drug Use History: None Reported Medications and Allergies Home Medications Medication Instructions Recorded Confirmed Type DULoxetine HCL [Cymbalta] 30 mg PO DAILY PRN 05/11/19 11/12/21 History Rivaroxaban [Xarelto] 20 mg PO W/SUPPER 05/11/19 11/12/21 History Albuterol Nebulized [Ventolin 2.5 mg INHALATION RT-Q4H PRN 11/12/21 11/12/21 History Nebulized] Azithromycin [Zithromax Z-pack (6 See Taper PO DAILY 11/12/21 11/12/21 History tabs)] Brimonidine Tartrate [Alphagan P 1 drops BOTH EYES BID 11/12/21 11/12/21 History 0.2% Ophth Soln] Insulin Aspart (For Pump) [NovoLOG 0.01 unit SQ-PUMP CONTINUOUS 11/12/21 11/12/21 History (For Pump)] Latanoprost [Xalatan 0.005%] 1 drop BOTH EYES HS 11/12/21 11/12/21 History hydroCHLOROthiazide [Hydrodiuril] 25 mg PO DAILY 11/12/21 11/12/21 History Allergies Allergy/AdvReac Type Severity Reaction Status Date / Time codeine AdvReac Confusion Verified 11/12/21 11:51 Physical Exam Osteopathic Statement: *. No significant issues noted on an osteopathic structural exam other than those noted in the History and Physical/Consult. Vitals: Vital Signs Temp Pulse Resp BP Pulse Ox 11/12/21 12:23 68 11/12/21 12:13 66 11/12/21 10:00 60 144/77 11/12/21 09:39 60 11/12/21 09:30 60 147/69 11/12/21 09:29 60 11/12/21 09:00 58 L 134/63 11/12/21 08:30 59 L 162/61 11/12/21 08:00 59 L 170/82 11/12/21 07:30 63 107/60 11/12/21 06:40 66 22 155/67 100 11/12/21 06:30 73 15 202/79 96 11/12/21 06:20 81 20 211/99 11/12/21 06:10 75 16 208/91 11/12/21 05:40 65 20 186/95 96 11/12/21 05:35 71 14 185/83 95 11/12/21 05:25 97.6 F 75 16 185/83 95 Intake and Output 11/11/21 11/12/21 11/12/21 22:59 06:59 14:59 Other: Weight 108.862 kg Results CBC & Chem 7: 11/12/21 05:25 11/12/21 05:25 Labs: Abnormal Lab Results - Last 24 Hours (Table) 11/12/21 11/12/21 Range/Units 05:25 05:25 PT 12.3 H (9.0-12.0) sec INR 1.2 H (<1.2) Carbon Dioxide 32 H (22-30) mmol/L BUN 19 H (7-17) mg/dL Glucose 182 H (74-99) mg/dL Calcium 8.2 L (8.4-10.2) mg/dL AST 42 H (14-36) U/L
[2021-11-12] MEDS: Insulin Aspart (For Pump) 100 UNIT/ML VIAL SQ-PUMP SCH (15:19)
[2021-11-12 17:25] LABS: Glucose,Whole Blood 183 mg/dL (75-99)
[2021-11-12] MEDS ORDERED: RIVAROXABAN 20 MG TAB PO SCH (17:30)
[2021-11-12] MEDS ORDERED: INSULIN PUMP BASAL RATES 1 EACH MISC MISCELLANE PRN (18:43)
[2021-11-12] MEDS ORDERED: INSULIN ASPART (NovoLOG) 100 UNIT/ML VIAL SQ PRN (18:43)
[2021-11-12] MEDS ORDERED: INSPUCOR MISCELLANE PRN (18:43)
[2021-11-12] MEDS: BRIMONIDINE TARTRATE 0.2% DROPS 5 ML BTL BOTH EYES SCH (20:16)
[2021-11-12] MEDS: METOPROLOL TARTRATE 12.5 MG TAB PO SCH (20:16)
[2021-11-12 20:47] LABS: Glucose,Whole Blood 158 mg/dL (75-99)
[2021-11-12] MEDS ORDERED: LATANOPROST 0.005% OPHTH DROPS 2.5 ML BTL BOTH EYES SCH (21:00)
[2021-11-12] MEDS ORDERED: ATORVASTATIN 80 MG TAB PO SCH (21:00)
[2021-11-12] MEDS: INSULIN PUMP MEAL BOLUS 1 UNIT MISC MISCELLANE SCH (22:07)
[2021-11-13] MEDS: IPRATROPIUM-ALBUTEROL 3 ML NEB INHALATION SCH ×3 (03:50→11:47)
[2021-11-13 07:28] LABS: Glucose,Whole Blood 76 mg/dL (75-99)
[2021-11-13] MEDS: INSULIN PUMP MEAL BOLUS 1 UNIT MISC MISCELLANE SCH ×2 (08:18→12:32)
[2021-11-13 08:19] VITALS: BP 199/63; RESP 18; TEMP 97.7
[2021-11-13] MEDS: hydroCHLOROthiazide 25 MG TAB PO SCH (08:27)
[2021-11-13] MEDS: BRIMONIDINE TARTRATE 0.2% DROPS 5 ML BTL BOTH EYES SCH (08:27)
[2021-11-13] MEDS: METOPROLOL TARTRATE 12.5 MG TAB PO SCH (08:27)
[2021-11-13] MEDS ORDERED: ASPIRIN 325 MG TAB PO SCH (09:00)
[2021-11-13] MEDS ORDERED: ASPIRIN 81 MG PO SCH (09:00)
--- NOTE | 2021-11-13 11:36 | P.CRDCN ---
History of Present Illness Consult date: 11/13/21 Consult reason: chest pain History of present illness: HISTORY OF PRESENT ILLNESS This is a 70-year-old female patient follows with Dr. Haley for cardiology. She has past medical history of paroxysmal atrial fibrillation on long-term anticoagulation with Xarelto, hypertension, diabetes mellitus type 2, hyperlipidemia. Patient was last seen in the hospital in 2019 at which time she was treated for sinus bradycardia and sotalol was stopped and patient was instructed to follow-up with her primary ring conductor. Echocardiogram at that time revealed EF of 55-60%, mild mitral regurgitation, mild mitral stenosis. Patient states she was recently seen by her PCP Dr. Trinidad and placed on azithromycin for bronchitis. She has chronic shortness of breath with activity. She complains of chest pain that started in the center of her chest that was nonradiating but she did have shortness of breath with it. Chest pain has been relieved and she thinks this is due to morphine. She states that she does not walk very much because she uses braces due to underlying [id number]-Paclp and also neuropathy. Patient denies having any recent stress tests or heart catheterizations. Blood pressure was elevated in the emergency center patient r eceived 1 dose of labetalol and was started on Lopressor 12.5 mg twice daily and resumed on hydrochlorothiazide. EKG is sinus rhythm with left bundle branch block similar to findings from EKG in 2019 Troponins are negative 3 draws, CBC unremarkable, INR 1.2. BUN 19 and creatinine 0.65 and potassium 4.3, CO2 32. Blood sugar initially 182. Patient did have hypoglycemia this morning. Calcium 8.2. AST 42 otherwise liver function tests are normal. Lipase 167. Pro-BNP 91. Chest x-ray reveals cardiomegaly with possible bilateral areas of early edema and/or infiltrate. REVIEW OF SYSTEMS Constitutional: No fever, no chills. No weakness, fatigue or lethargy. EENT: No headache. No dizziness. Lungs: No shortness of breath, cough, no sputum production. No wheezing. Chronic dyspnea with exertion. Cardiovascular: No chest pain-resolved, chronic lower extremity edema. No palpitations. No paroxysmal nocturnal dyspnea. No orthopnea. No lightheadedness or dizziness. No syncopal episodes. Abdominal: No abdominal pain. No nausea, vomiting. No diarrhea. No constipation. No bloody or tarry stools.. No loss of appetite. Genitourinary: No dysuria.. No urinary retention. Musculoskeletal: No myalgias. No muscle weakness, no gait dysfunction, no frequent falls. No back pain. No neck pain. Integumentary: No wounds, no lesions. No rash or pruritus. No unusual bruising. Neurologic: No aphasia. No facial droop. No change in mentation. No head injury. No headache. No paralysis. No paresthesia. Psychiatric: No depression. No anxiety. Endocrine: Noted abnormal blood sugars. PHYSICAL EXAMINATION Gen: This is a morbidly obese 70-year-old female. She is resting in bed and appears to be comfortable and in no acute distress. VS: Afebrile, heart rate is 60s and 70s, blood pressure 199/63, pulse ox 97% on room air. HEENT: Head is atraumatic, normocephalic. Pupils equal, round. Sclerae is anicteric. NECK: Supple. No JVD. No lymphadenopathy. No thyromegaly. LUNGS: Rhonchi bilaterally. No wheezing. No intercostal retractions. HEART: Regular rate and rhythm. Systolic murmur at the left sternal border. ABDOMEN: Soft. Bowel sounds are present. No masses. No tenderness. EXTREMITIES: No pedal edema. No calf tenderness. Dorsalis pedis palpable bilaterally. NEUROLOGICAL: Patient is awake, alert and oriented x3. Cranial nerves 2 through 12 are grossly intact. ASSESSMENT Chest pain, acute coronary syndrome ruled out Bronchitis Paroxysmal atrial fibrillation on long-term anticoagulation Uncontrolled hypertension Hyperlipidemia Diabetes mellitus type 2 on insulin pump Left bundle branch block History of symptomatic bradycardia 2018, discontinued sotalol at that time. PLAN Continue Xarelto 20 mg with supper Continue hydrochlorothiazide 25 mg daily Patient has been started on Lopressor 12.5 mg twice daily, atorvastatin 80 mg at bedtime per attending Continue treatment for bronchitis Further recommendations to follow based upon clinical course Patient is cleared for discharge home,l follow-up with her primary ring conductor Dr. Haley Thank you kindly for this consultation. Nurse practitioner note has been reviewed, I agree with documented findings and plan of care. Patient was seen and examined. Past Medical History Past Medical History: Atrial Fibrillation, Diabetes Mellitus, Hyperlipidemia Additional Past Medical History / Comment(s): neuropathy History of Any Multi-Drug Resistant Organisms: None Reported Past Surgical History: Orthopedic Surgery Additional Past Surgical History / Comment(s): "surjit in her leg after fracture" Past Anesthesia/Blood Transfusion Reactions: No Reported Reaction Past Psychological History: No Psychological Hx Reported Past Alcohol Use History: None Reported Past Drug Use History: None Reported Medications and Allergies Home Medications Medication Instructions Recorded Confirmed Type DULoxetine HCL [Cymbalta] 30 mg PO DAILY PRN 05/11/19 11/12/21 History Rivaroxaban [Xarelto] 20 mg PO W/SUPPER 05/11/19 11/12/21 History Albuterol Nebulized [Ventolin 2.5 mg INHALATION RT-Q4H PRN 11/12/21 11/12/21 History Nebulized] Azithromycin [Zithromax Z-pack (6 See Taper PO DAILY 11/12/21 11/12/21 History tabs)] Brimonidine Tartrate [Alphagan P 1 drops BOTH EYES BID 11/12/21 11/12/21 History 0.2% Ophth Soln] Insulin Aspart (For Pump) [NovoLOG 0.01 unit SQ-PUMP CONTINUOUS 11/12/21 0 11/12/21 History (For Pump)] Latanoprost [Xalatan 0.005%] 1 drop BOTH EYES HS 11/12/21 11/12/21 History hydroCHLOROthiazide [Hydrodiuril] 25 mg PO DAILY 11/12/21 11/12/21 History Metoprolol Tartrate [Lopressor] 12.5 mg PO BID #60 tab 11/13/21 Rx Allergies Allergy/AdvReac Type Severity Reaction Status Date / Time codeine AdvReac Confusion Verified 11/12/21 11:51 Physical Exam Vitals: Vital Signs Temp Pulse Pulse Resp BP BP Pulse Ox 11/13/21 02:03 97.4 F L 63 17 162/79 96 11/12/21 20:38 72 11/12/21 20:25 70 11/12/21 19:03 97.9 F 70 19 139/76 97 11/12/21 16:19 72 11/12/21 16:04 64 11/12/21 14:57 97.6 F 71 18 203/80 100 11/12/21 13:48 67 18 168/79 11/12/21 12:23 68 11/12/21 12:13 66 11/12/21 10:00 60 144/77 11/12/21 09:39 60 11/12/21 09:30 60 147/69 11/12/21 09:29 60 11/12/21 09:00 58 L 134/63 11/12/21 08:30 59 L 162/61 11/12/21 08:00 59 L 170/82 Intake and Output 11/12/21 11/13/21 11/13/21 22:59 06:59 14:59 Output Total 150 100 Balance -150 -100 Output: Urine 150 100 Other: Voiding Method External Catheter External Catheter External Catheter Results 11/12/21 05:25 11/12/21 05:25 Cardiac Enzymes 11/12/21 11/12/21 Range/Units 08:36 12:59 Troponin I <0.012 <0.012 (0.000-0.034) ng/mL Current Medications Generic Name Dose Route Start Last Admin Trade Name Freq PRN Reason Stop Dose Admin Albuterol Sulfate 2.5 mg 11/12/21 12:06 Albuterol Nebulized 2.5 Mg/3 Ml INHALATION RT-Q4H PRN Shortness Of Breath Albuterol/Ipratropium 3 ml 11/12/21 09:15 11/13/21 03:50 Ipratropium-Albuterol 3 Ml Neb INHALATION Not Given RT-Q4H JENNIFER Aspirin 81 mg 11/13/21 09:00 Aspirin 81 Mg PO DAILY JENNIFER Atorvastatin Calcium 80 mg 11/12/21 21:00 11/12/21 20:16 Atorvastatin 80 Mg Tab PO 80 mg HS JENNIFER Administration Brimonidine Tartrate 1 drops 11/12/21 21:00 11/12/21 20:16 Brimonidine Tartrate 0.2% Drops 5 Ml Btl BOTH EYES 1 drops BID JENNIFER Administration Duloxetine HCl 30 mg 11/12/21 12:06 Duloxetine Hcl 30 Mg Capsule.Dr PO DAILY PRN LEG PAIN Hydrochlorothiazide 25 mg 11/12/21 12:15 11/12/21 13:47 Hydrochlorothiazide 25 Mg Tab PO 25 mg DAILY JENNIFER Administration Insulin Aspart 0.01 unit 11/12/21 12:15 11/12/21 15:19 Insulin Aspart (For Pump) 100 Unit/Ml Vial SQ-PUMP Not Given CONTINUOUS JENNIFER Insulin Aspart 0 unit 11/12/21 18:43 Insulin Aspart (Novolog) 100 Unit/Ml Vial SQ DAILY PRN Insulin Pump Replacement Latanoprost 1 drops 11/12/21 21:00 11/12/21 20:16 Latanoprost 0.005% Ophth Drops 2.5 Ml Btl BOTH EYES 1 drops HS JENNIFER Administration Metoprolol Tartrate 12.5 mg 11/12/21 21:00 11/12/21 20:16 Metoprolol Tartrate 12.5 Mg Tab PO 12.5 mg BID JENNIFER Administration Miscellaneous Information 1 each 11/12/21 18:43 Insulin Pump Basal Rates 1 Each Misc MISCELLANE Q6HR PRN Blood Sugar - High Protocol Miscellaneous Information 0 unit 11/12/21 21:00 11/12/21 22:07 Insulin Pump Meal Bolus 1 Unit Misc MISCELLANE 6.2 unit ACHS JENNIFER Administration Protocol Miscellaneous Information 0 unit 11/12/21 18:43 Insulin Pump Correction Bolus 1 Unit Misc MISCELLANE ACHS PRN Blood Sugar - High Protocol Morphine Sulfate 4 mg 11/12/21 06:26 11/12/21 06:59 Morphine Sulfate 4 Mg/Ml Syringe IV 4 mg Q4HR PRN Administration Chest Pain Nitroglycerin 0.4 mg 11/12/21 06:09 Nitroglycerin Sl Tabs 0.4 Mg Tab SUBLINGUAL Q5M PRN Chest Pain Rivaroxaban 20 mg 11/12/21 17:30 11/12/21 17:55 Rivaroxaban 20 Mg Tab PO 20 mg W/SUPPER JENNIFER Administration Protocol Intake and Output 11/12/21 11/13/21 11/13/21 22:59 06:59 14:59 Output Total 150 100 Balance -150 -100 Output: Urine 150 100 Other: Voiding Method External Catheter External Catheter External Catheter 11/12/21 05:25 11/12/21 05:25
[2021-11-13 12:00] VITALS: PULSE 76
[2021-11-13 12:21] LABS: Glucose,Whole Blood 205 mg/dL (75-99)
[2021-11-13] MEDS: Insulin Aspart (For Pump) 100 UNIT/ML VIAL SQ-PUMP SCH (12:31)
--- NOTE | 2021-11-13 13:04 | P.DS ---
Providers Date of admission: 11/12/21 06:09 Expected date of discharge: 11/13/21 Attending physician: Kolby Porter MD Consults: 11/12/21 06:09 Consult Physician Urgent Consulting Provider: Jorge Brand Consult Reason/Comments: cp Do you want consulting provider notified?: Yes Primary care physician: Sadie Trinidad [facility] Course: 70-year-old woman with medical history of Cfmxesu-Uvdha-Sfbvs, hypertension, hyperlipidemia, diabetes, proximal atrial fibrillation presented with chest pressure and dyspnea. In the emergency room, patient was afebrile, 144/77, heart rate 60, 96% on 3 L nasal cannula. CBC is unremarkable. Chemistries are unremarkable. LFTs have mild elevation of AST to 42 mother was unremarkable. Initial troponin was negative, second troponin was negative; BNP was 91. INR is mildly elevated at 1.2. EKG demonstrates sinus rhythm with left bundle-branch block which is not new. Chest x-ray demonstrate cardiomegaly with possible bilateral areas of early edema and/or infiltrate. Chest pain, atypical Acute hypoxemic respiratory failure Volume overload -Admitted to observation with telemetry. Cardiology consulted. Trended troponins were negative. Treated with Aspirin, statin, beta william. Treated with IV lasix. Pt returned to room air. Echo was not completed prior to discharge. She will see cardiology in follow up for further evaluation. History of Txmgqor-Sifyb-Svuou Hypertension Hyperlipidemia Diabetes type 2 Paroxysmal atrial fibrillation -Home Medications reviewed and reconciled, No changes to home meds Gen: awake, alert HEENT: normocephalic, atraumatic, good hearing acuity, moist mucous membranes Resp: good air exchange, breathing comfortably with no accessory muscle use, bilateral crackles CVS: good distal perfusion x 4, regular rate and rhythm without murmurs GI: soft, NTTP, ND : no SPT, no CVAT, chaparro catheter not present MSK: trace pitting edema, no clubbing Neuro: non-focal, moving all extremities Psych: cooperative, euthymic mood Patient Condition at Discharge: Good Plan - Discharge Summary Discharge Rx Participant: No New Discharge Prescriptions: New Metoprolol Tartrate [Lopressor] 12.5 mg PO BID #60 tab Continue Rivaroxaban [Xarelto] 20 mg PO W/SUPPER DULoxetine HCL [Cymbalta] 30 mg PO DAILY PRN PRN Reason: LEG PAIN Brimonidine Tartrate [Alphagan P 0.2% Ophth Soln] 1 drops BOTH EYES BID Albuterol Nebulized [Ventolin Nebulized] 2.5 mg INHALATION RT-Q4H PRN PRN Reason: Shortness Of Breath Azithromycin [Zithromax Z-pack (6 tabs)] See Taper PO DAILY hydroCHLOROthiazide [Hydrodiuril] 25 mg PO DAILY Insulin Aspart (For Pump) [NovoLOG (For Pump)] 0.01 unit SQ-PUMP CONTINUOUS Latanoprost [Xalatan 0.005%] 1 drop BOTH EYES HS Discharge Medication List DULoxetine HCL [Cymbalta] 30 mg PO DAILY PRN 05/11/19 [History] Rivaroxaban [Xarelto] 20 mg PO W/SUPPER 05/11/19 [History] Albuterol Nebulized [Ventolin Nebulized] 2.5 mg INHALATION RT-Q4H PRN 11/12/21 [History] Azithromycin [Zithromax Z-pack (6 tabs)] See Taper PO DAILY 11/12/21 [History] Brimonidine Tartrate [Alphagan P 0.2% Ophth Soln] 1 drops BOTH EYES BID 11/12/21 [History] Insulin Aspart (For Pump) [NovoLOG (For Pump)] 0.01 unit SQ-PUMP CONTINUOUS 11/12/21 [History] Latanoprost [Xalatan 0.005%] 1 drop BOTH EYES HS 11/12/21 [History] hydroCHLOROthiazide [Hydrodiuril] 25 mg PO DAILY 11/12/21 [History] Metoprolol Tartrate [Lopressor] 12.5 mg PO BID #60 tab 11/13/21 [Rx] Follow up Appointment(s)/Referral(s): Sadie Trinidad MD [Primary Care Provider] - 1-2 days Patient Instructions/Handouts: Chest Pain (ED) Discharge Disposition: HOME SELF-CARE
[2021-11-13 13:23] LABS: Chol/HDL Ratio 3.21 Ratio; LDL Cholesterol,Calculated 78.4 mg/dL (0.0-131.0); VLDL Calculation 19.28 mg/dL (5.00-40.00)
== END 2021-11-13 13:35 | disposition home or self-care (01) ==
LOC: EC 05:23 → 6NMEDSUR 06:09
PROVIDERS: ADMIT Internal Medicine; ATTEND Internal Medicine
DX: R07.89 Other chest pain (principal); J96.01 Acute respiratory failure with hypoxia; E87.70 Fluid overload, unspecified; J40 Bronchitis, not specified as acute or chronic; G60.0 Hereditary motor and sensory neuropathy; I10 Essential (primary) hypertension; E78.5 Hyperlipidemia, unspecified; E11.649 Type 2 diabetes mellitus with hypoglycemia without coma; E11.40 Type 2 diabetes mellitus with diabetic neuropathy, unspecified; I48.0 Paroxysmal atrial fibrillation; I44.7 Left bundle-branch block, unspecified; I05.2 Rheumatic mitral stenosis with insufficiency; R74.01 Elevation of levels of liver transaminase levels; E78.00 Pure hypercholesterolemia, unspecified; R79.1 Abnormal coagulation profile; R61 Generalized hyperhidrosis; R00.2 Palpitations; E66.01 Morbid (severe) obesity due to excess calories; Z68.42 Body mass index [BMI] 45.0-49.9, adult; Z66 Do not resuscitate; Z79.01 Long term (current) use of anticoagulants; Z79.4 Long term (current) use of insulin; Z79.899 Other long term (current) drug therapy; Z96.41 Presence of insulin pump (external) (internal); Z88.5 Allergy status to narcotic agent
CPT/HCPCS: 96374; 96375; 99285; 36415; 94640 ×4; 93005; 83880; 80061; 80053; 83690; 83735; 84484; 85025; 85610; 85730; 71046; G0378 ×2; J2270